=== PATIENT | male | born 1960 | race Caucasian/White ===

== ENCOUNTER 2017-10-09 14:11 | Emergency (ER) | payer SELFPAY ==
[~2017-10-09] VITALS: Ht 188 cm; Wt 100.0 kg
[2017-10-09] MEDS ORDERED: ASPI-1159 PO (14:18)
[2017-10-09] MEDS ORDERED: METH10TA7 PO (14:19)
[2017-10-09] MEDS ORDERED: ALBU18HF2 IH (14:19)
[2017-10-09] MEDS ORDERED: FURO20TA4 PO (14:19)
[2017-10-09] MEDS ORDERED: EMTR1TAB11 PO (14:19)
[2017-10-09] MEDS ORDERED: METO25TA6 PO (14:19)
[2017-10-09] MEDS ORDERED: DILT240C92 PO (14:19)
[2017-10-09] MEDS ORDERED: POTA10CA42 PO (14:19)
[2017-10-09 16:30] LABS: BASOPHILS % 0.2 % (0.0-2.0); EOSINOPHILS % 2.1 % (0.0-5.0); HEMATOCRIT. 43.7 % (42.0-52.0); LYMPHOCYTES % 25.1 % (20.0-50.0); MEAN CORPUSCULAR HEMOGLOBIN 32.9 pg (28.0-32.0); MEAN CORPUSCULAR VOLUME 95.5 fL (80.0-94.0); MEAN PLATELET VOLUME 7.8 fl (7.4-10.4); MONOCYTES % 9.5 % (2.0-8.0); NEUTROPHILS % 63.1 % (40.0-76.0); PLATELET 224 x1000/uL (130-400); RED BLOOD CELL COUNT 4.58 mill/uL (4.7-6.1); RED CELL DISTRIBUTION WIDTH 14.8 % (11.6-14.6)
[2017-10-09 16:38] LABS: CHLORIDE 108 mEq/L (98-107)
[2017-10-09 16:40] LABS: PROTHROMBIN TIME 10.8 sec (9.4-11.6)
[2017-10-09 17:31] LABS: T4 FREE 1.28 ng/dL (0.76-1.46)
[2017-10-09 18:56] LABS: CLARITY URINE CLEAR (CLEAR); COLOR URINE YELLOW (YELLOW); KETONES URINE NEGATIVE (NEGATIVE); LEUKOCYTE ESTERASE URINE NEGATIVE (NEGATIVE); NITRITE URINE NEGATIVE (NEGATIVE); OCCULT BLOOD URINE NEGATIVE (NEGATIVE); PROTEIN URINE NEGATIVE (NEGATIVE); SPECIFIC GRAVITY URINE 1.018 (1.005-1.030); UROBILINOGEN URINE 0.2 E.U./dL (0.2-1.0)
[2017-10-09] MEDS ORDERED: METOPROLOL TARTRATE 50MG TABLET PO ONE (19:00)
[2017-10-09] MEDS ORDERED: METHIMAZOLE 5MG TABLET PO SCH (19:00)
[2017-10-09 19:06] VITALS: BP 154/90
[2017-10-09 19:16] LABS: *AMPHETAMINES SCREEN URINE PRESUMTIVE POSITIVE (NEGATIVE); *BARBITURATES SCREEN URINE NEGATIVE (NEGATIVE); *BENZODIAZEPINES SCREEN URINE NEGATIVE (NEGATIVE); *COCAINE SCREEN URINE NEGATIVE (NEGATIVE); CANNABINOID URINE SCREEN NEGATIVE (NEGATIVE); METHADONE URINE SCREEN NEGATIVE (NEGATIVE); OPIATES URINE SCREEN NEGATIVE (NEGATIVE); PHENCYCLIDINE URINE SCREEN NEGATIVE (NEGATIVE)
[2017-10-09] MEDS ORDERED: METHIMAZOLE 5MG TABLET PO NR (19:45)
== END 2017-10-09 19:54 | disposition left against medical advice (07) ==
LOC: ER 14:11 → CANBEDREQ 22:47
DX: R79.89 Other specified abnormal findings of blood chemistry (principal); E87.8 Other disorders of electrolyte and fluid balance, not elsewhere classified; D72.821 Monocytosis (symptomatic); R73.03 Prediabetes; E88.09 Other disorders of plasma-protein metabolism, not elsewhere classified; E86.0 Dehydration; D53.9 Nutritional anemia, unspecified; R74.8 Abnormal levels of other serum enzymes; F15.10 Other stimulant abuse, uncomplicated; E05.90 Thyrotoxicosis, unspecified without thyrotoxic crisis or storm; I50.9 Heart failure, unspecified; I48.91 Unspecified atrial fibrillation; Z79.82 Long term (current) use of aspirin
CPT/HCPCS: 36415; 71045; 80053; 80305; 81003; 83036; 83880; 84439; 84443; 84484; 85025; 85610; 87186; 93005; 99285; Z7610